=== PATIENT | male | born 1995 | race Caucasian/White ===

== ENCOUNTER 2019-09-11 09:30 | Emergency (ER) | payer BC, SELFPAY ==
[2019-09-11 09:31] VITALS: BP 149/100; PULSE 101; RESP 18; TEMP 36.6; O2SAT 96; BMI 30.4
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
== END 2019-09-11 11:09 | disposition home or self-care (01) ==
PROVIDERS: Emergency Provider Emergency Medicine
DX: S16.1XXA Strain of muscle, fascia and tendon at neck level, initial encounter (principal); S29.012A Strain of muscle and tendon of back wall of thorax, initial encounter; M25.561 Pain in right knee; M25.562 Pain in left knee; V89.2XXA Person injured in unspecified motor-vehicle accident, traffic, initial encounter; Y93.9 Activity, unspecified; Y92.9 Unspecified place or not applicable
CPT/HCPCS: 72040; 72070; 99282

== ENCOUNTER 2023-03-07 11:20 | Emergency (ER) | payer OTHER, SELFPAY ==
[2023-03-07 11:21] VITALS: BP 151/99; PULSE 107; RESP 18; TEMP 36.6; O2SAT 99; BMI 38.3
[2023-03-07] MEDS: Diphth,Pertuss(Acell),Tet Vac 0.5 ML Vial IM (12:55)
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
--- NOTE | 2023-03-07 13:08 | EDS_ITS ---
HPI History of Present Illness Chief Complaint: Laceration Informant: patient Narrative Narrative: Patient received a laceration to mostly the volar surface of his right dominant hand index finger at work about an hour or so before arrival. Unknown tetanus. No distal numbness or tingling. He states it really does not hurt. There is some mild bleeding but very easily controlled. No loss of function or range of motion. No other injuries. He states he was reaching into a bin of metal and a piece of metal cut his finger as he pulled his finger out. PFSH PFSH Medical History no medical history Home Medications cyclobenzaprine 10 mg tablet 10 mg PO TID PRN Muscle Spasm #20 tabs 09/11/19 [Rx Last Taken Unknown] naproxen 500 mg tablet 500 mg PO BID PRN #20 tabs 09/11/19 [Rx Last Taken Unknown] Allergy/AdvReac Type Severity Reaction Status Date / Time amoxicillin [From Augmentin] AdvReac Vomiting Verified 09/11/19 09:33 clavulanic acid AdvReac Vomiting Verified 09/11/19 09:33 [From Augmentin] Social History Smoking Status: Never smoker ROS ROS ED Constitutional Constitutional ED: Denies fever(s) Gastrointestinal Gastrointestinal: Denies nausea or vomiting Musculoskeletal Musculoskeletal: Reports other Details: Right index finger injury ; Denies neck pain Integumentary Reports other Details: Laceration right index. Neurologic Neurologic: Denies paresthesias or weakness Hematologic/Lymphatic Hematologic/Lymphatic: Denies easy bleeding or easy bruising Allergic/Immunologic Allergic/Immunologic ED: Denies urticaria EXAM Physical Exam Narrative Exam Narrative: General: Patient awake alert comfortable sitting on the bed. He has wrapping on his right index finger. Lungs are clear. Heart is regular. Rate still about 90. Abdomen is benign. Extremities show wrapping on the right index finger. This was taken down. There is a somewhat jagged irregular laceration that starts on the lateral aspect of his right index finger overlying the mid phalanx. It wraps in a volar fashion. Total length is about 2 cm. But the medial aspect seems to not go nearly as deep. There is no active bleeding. I do not get any sensory change at all on this finger. Sensation seems fully intact. Extension as well as both deep and superficial flexor tendons are all individually intact. Const Vital Signs: 03/07/23 11:21 Temperature 97.8 F Temperature Source Temporal Pulse Rate 107 H Respiratory Rate 18 Blood Pressure 151/99 H Blood Pressure Mean 116 Pulse Ox 99 Oxygen Delivery Method Room Air PROC Procedures Lacerations Right index finger: Depth: Skin Shape: Linear Prep: Sterile Conditions and Shure-Clens Laceration repair: Digital block, Irrigated, Lidocaine, Local and Skin sutures Number of Sutures/[place]: 7 Suture Information: Ethilon and 4-0 Comment: See MDM MDM MDM MDM Narrative Medical decision making narrative: X-rays ordered because of the dirty environment and we do not know how many pieces of metal redness been. My independent interpretation of the patient's three-view x-ray of the right index finger show no foreign material. Presence of the laceration can be seen. No sign of bony involvement. Procedure: Suture laceration: A 50% mixture of 1% lidocaine without epinephrine and 0% bupivacaine was used to do a digital block. He got good anesthesia except he had some few spots that were still sharp. Other spots he felt nothing at all. I did about 1 cc of local 1% lidocaine without epinephrine at the wound and he had complete anesthesia. The area was scrubbed and cleaned. Examined in a bloodless field. Copiously scrubbed and then irrigated with over 100 cc. It was sutured with good cosmesis and hemostasis watching each throw of the stitch. 7 total 4-0 Ethilon were used with good cosmesis hemostasis. He tolerated this well. He had excellent range of motion afterwards. We discussed timing of suture removal. I would lean more toward 14 days. We discussed signs of infection and reasons to return. Radiography Diagnostic Testing: Clinical Impression(s) from Imaging Studies Finger X-Ray 03/07/23 13:00 IMPRESSION: Soft tissue injury overlying the midportion of the middle pharynx of the index finger along the radial side with no evidence of radiopaque foreign body. Electronically Signed: Chilo Mcmahon MD at 13:29 EST , Discharge Plan Triage Chief Complaint: Laceration ED Provider: Dave Medel Dx/Rx/DC Orders Clinical Impression: Laceration of right index finger Instructions: ED Laceration, Hand: All Closures Prescriptions: No Action cyclobenzaprine 10 MG tablet 10 mg PO TID PRN (Reason: Muscle Spasm) Qty: 20 0RF naproxen 500 MG tablet 500 mg PO BID PRN Qty: 20 0RF Primary Care Provider: Care Physician,No Primary Referrals: Care Physician,No Primary [Primary Care Provider] - Activity Restrictions/Additional Instructions: Follow-up with your primary physician Sunday as planned. Sutures out in 12-14 days. Please return if signs of redness, drainage, odor, swelling, pain, fevers or other concerns develop. Disposition Disposition: Home, Self Care
[2023-03-07] MEDS: Lidocaine 1% (20 ml mdv) 20 ML Vial INFILT (14:42)
[2023-03-07] MEDS: Bupivacaine Mpf 0.5% 30 ML VIAL INFILT (14:49)
== END 2023-03-07 14:48 | disposition home or self-care (01) ==
PROVIDERS: Emergency Provider Emergency Medicine; Visit Provider Emergency Medicine
DX: S61.210A Laceration without foreign body of right index finger without damage to nail, initial encounter (principal); W26.8XXA Contact with other sharp object(s), not elsewhere classified, initial encounter; Y93.89 Activity, other specified; Y92.89 Other specified places as the place of occurrence of the external cause; Z23 Encounter for immunization
CPT/HCPCS: 12001; 73140; 90471; 90715; 99284